=== PATIENT | female | born 2000 | race Caucasian/White ===

== ENCOUNTER 2022-06-20 08:35 | Emergency (ER) | payer BC, SELFPAY ==
[2022-06-20 08:43] VITALS: BP 131/85; PULSE 89; RESP 16; TEMP 36.8; O2SAT 100
--- NOTE | 2022-06-20 11:14 | PC.NURSE ---
Not in waiting room at 1100 or 1111
== END 2022-06-20 11:00 | disposition left against medical advice (07) ==
PROVIDERS: PCP Nurse Practitioner Family
DX: M25.511 Pain in right shoulder (principal)
CPT/HCPCS: 99199

== ENCOUNTER 2023-05-08 09:25 | Outpatient (NON) | payer BC, SELFPAY ==
[2023-05-08 09:35] LABS: Bilirubin Urine Negative (Negative); Blood Urine 1+ (Negative); Glucose Urine UA Trace (Negative); Ketones Urine Negative (Negative); Leukocyte Esterase Ur 2+ (Negative); Nitrate Urine Positive (Negative); Protein Urine 1+ (Negative); Specific Grav Ur 1.025 (1.010-1.020)
[2023-05-08 09:44] LABS: Color Urine Dark Yellow (Yellow)
[2023-05-08 09:45] LABS: Add Urine Microscopic? YES; Appearance Urine Cloudy (Clear); Bacteria Urine 1+ /hpf; Squamous Epithelial Cell Urine Few /hpf (Few)
[2023-05-09 10:16] LABS: Chlamydia trachomatis NOT DETECTED (NOT DETECTE); Neisseria gonorrhoeae PCR NOT DETECTED (NOT DETECTE)
== END 2023-05-08 09:26 | disposition home or self-care (01) ==
LOC: CHSLAB 09:26
PROVIDERS: Visit Provider Nurse Practitioner Family
DX: R39.9 Unspecified symptoms and signs involving the genitourinary system (principal)
CPT/HCPCS: 81001; 87086; 87088; 87491; 87591

== ENCOUNTER 2023-06-04 11:51 | Outpatient (NON) | payer BC, SELFPAY | END 2023-06-04 11:52 | disposition home or self-care (01) | LOC: CHSLAB 11:53 | PROVIDERS: Visit Provider Nurse Practitioner Family | DX: Z01.419 Encounter for gynecological examination (general) (routine) without abnormal findings (principal) | CPT/HCPCS: 87070; 87075; 87205; 88175; G0145 ==

== ENCOUNTER 2023-06-13 07:55 | Outpatient (CLI) | payer BC, SELFPAY | END 2023-06-13 07:56 | disposition home or self-care (01) | LOC: ANHAUDIO 07:56 | PROVIDERS: PCP Nurse Practitioner Family; Visit Provider Otolaryngology | DX: H90.12 Conductive hearing loss, unilateral, left ear, with unrestricted hearing on the contralateral side (principal) | CPT/HCPCS: 92557; 92567 ==